=== PATIENT | female | born 1960 | race African-American/Black ===

== ENCOUNTER 2016-07-09 07:16 | Emergency (ER) | payer MEDICARE, MEDICAID ==
[~2016-07-09] VITALS: Ht 165.1 cm; Wt 115.0 kg
[~2016-07-09 07:16] MED LIST: CALC-1059 PO; DIAZ5TAB4 PO; FERR-63 PO; HYDR-3927 PO; HYDR25TA PO; LOSA50TA20 PO; OMEP20TA80 PO
[2016-07-09 07:28] VITALS: BP 154/100
== END 2016-07-09 10:21 | disposition home or self-care (01) ==
LOC: ER 07:16
DX: J20.9 Acute bronchitis, unspecified (principal); Z88.1 Allergy status to other antibiotic agents; J44.9 Chronic obstructive pulmonary disease, unspecified; I10 Essential (primary) hypertension
CPT/HCPCS: 99283

== ENCOUNTER 2016-09-03 09:27 | Emergency (ER) | payer MEDICARE, MEDICAID ==
[~2016-09-03] VITALS: Ht 162.6 cm; Wt 106.0 kg
[2016-09-03 09:32] VITALS: BP 172/95
== END 2016-09-03 11:38 | disposition home or self-care (01) ==
LOC: ER 09:53
DX: M25.531 Pain in right wrist (principal); M19.90 Unspecified osteoarthritis, unspecified site; I10 Essential (primary) hypertension; Z98.1 Arthrodesis status; Z88.1 Allergy status to other antibiotic agents; W22.8XXA Striking against or struck by other objects, initial encounter; Y93.89 Activity, other specified; Y92.013 Bedroom of single-family (private) house as the place of occurrence of the external cause
CPT/HCPCS: 73110; 99284

== ENCOUNTER → 2017-04-29 | Outpatient (CLI) | payer MEDICARE, MEDICAID ==
[~2017-04-29] MED LIST changes: -HYDR-3927 PO; +HYDR-4001 PO; +OMEP20TA2 PO; -OMEP20TA80 PO
== END | disposition home or self-care (01) ==
LOC: MAMMO 10:12
PROVIDERS: ATTEND Internal Medicine
DX: Z12.31 Encounter for screening mammogram for malignant neoplasm of breast (principal)
CPT/HCPCS: 77067

== ENCOUNTER 2017-10-11 08:46 | Emergency (ER) | payer MEDICARE, MEDICAID ==
[~2017-10-11] VITALS: Ht 160 cm; Wt 108.0 kg
[2017-10-11 15:01] VITALS: BP 148/62
== END 2017-10-11 15:02 | disposition home or self-care (01) ==
LOC: ER 08:46
DX: J35.8 Other chronic diseases of tonsils and adenoids (principal); I10 Essential (primary) hypertension
CPT/HCPCS: 87070; 87430; 99283

== ENCOUNTER → 2023-07-17 | Outpatient (CLI) | payer MEDICARE, MEDICAID ==
[~2023-07-17] MED LIST changes: +BO1 TP; +CALC-26 MT; +CLIN-116 MT; +FERR325T6 MT; +IBUP-2029 MT; +IBUP-2030 MT; -LOSA50TA20 PO; +LOSA50TA41 MT; +LOSA50TA41 PO; +MECL-299 MT; +NYST15CR37 TP; +OMEP20CA14 MT; -OMEP20TA2 PO; +OMEP20TA23 PO; +[UNRECOGNIZED DRUG - CODE] OP
== END | disposition home or self-care (01) ==
LOC: MRI 12:18
PROVIDERS: ATTEND Internal Medicine
DX: M13.842 Other specified arthritis, left hand (principal); M79.642 Pain in left hand
CPT/HCPCS: 73218; 73220; 73560; 73590; 73610

== ENCOUNTER → 2023-09-17 | Outpatient (CLI) | payer MEDICARE, MEDICAID | END | disposition home or self-care (01) | LOC: MRI 09:35 | PROVIDERS: ATTEND Internal Medicine | DX: M47.817 Spondylosis without myelopathy or radiculopathy, lumbosacral region (principal); M47.814 Spondylosis without myelopathy or radiculopathy, thoracic region; M48.07 Spinal stenosis, lumbosacral region; M25.78 Osteophyte, vertebrae | CPT/HCPCS: 72148 ==

== ENCOUNTER → 2023-10-24 | Outpatient (CLI) | payer MEDICARE, MEDICAID | END | disposition home or self-care (01) | LOC: US 11:25 | PROVIDERS: ATTEND Internal Medicine | DX: N28.1 Cyst of kidney, acquired (principal); N28.9 Disorder of kidney and ureter, unspecified | CPT/HCPCS: 76770 ==

== ENCOUNTER 2024-04-16 07:58 | Emergency (ER) | payer MEDICARE, MEDICAID ==
[~2024-04-16] VITALS: Ht 157.5 cm; Wt 89.6 kg
[2024-04-16 08:15] VITALS: O2SAT 99
[2024-04-16 09:06] LABS: CARBON DIOXIDE 26 mEq/L (21-32); CHLORIDE 106 mEq/L (98-107); POTASSIUM 3.9 mEq/L (3.5-5.1); SODIUM 142 mEq/L (136-145)
[2024-04-16 09:07] LABS: BASOPHILS % 0.8 % (0.0-2.0); CALCIUM 9.8 mg/dL (8.7-10.4); EOSINOPHILS % 3.5 % (0.0-5.0); HEMOGLOBIN. 13.9 g/dL (12.0-16.0); LYMPHOCYTES % 27.2 % (20.0-50.0); MEAN CORPUSCULAR HEMOGLOBIN 26.9 pg (28.0-32.0); MEAN CORPUSCULAR HGB CONC 32.3 g/dL (31.0-37.0); MEAN CORPUSCULAR VOLUME 83.3 fL (81.0-99.0); MEAN PLATELET VOLUME 9.7 fl (7.4-10.4); MONOCYTES % 6.5 % (2.0-8.0); PLATELET 198 x1000/uL (130-400); RED BLOOD CELL COUNT 5.16 mill/uL (4.2-5.4); RED CELL DISTRIBUTION WIDTH 14.4 % (11.6-14.6)
[2024-04-16 09:12] LABS: CREATININE 0.9 mg/dL (0.6-1.0); GLUCOSE 104 mg/dL (70-105); UREA NITROGEN BLOOD 19 mg/dL (9-23)
[2024-04-16 09:35] LABS: TROPONIN I HIGH SENSITIVITY < 4 ng/L (3.0-34)
[2024-04-16 10:35] VITALS: BP 140/78; PULSE 72; RESP 18; TEMP 36.61404; O2SAT 99
== END 2024-04-16 10:37 | disposition home or self-care (01) ==
LOC: ER 07:58
DX: M79.601 Pain in right arm (principal); J45.909 Unspecified asthma, uncomplicated; I10 Essential (primary) hypertension; E11.9 Type 2 diabetes mellitus without complications; Z88.0 Allergy status to penicillin; Z79.899 Other long term (current) drug therapy; Z90.710 Acquired absence of both cervix and uterus; Z98.890 Other specified postprocedural states
CPT/HCPCS: 36415; 80048; 84484; 85025; 99283

== ENCOUNTER 2024-10-28 11:29 | Emergency (ER) | payer MEDICARE, MEDICAID ==
[~2024-10-28] VITALS: Ht 162.6 cm; Wt 91.0 kg
[~2024-10-28 11:29] MED LIST changes: +NYST15CR31 TP; -NYST15CR37 TP
[2024-10-28 11:42] VITALS: O2SAT 99
[2024-10-28 13:26] LABS: BASOPHILS % 1.5 % (0.0-2.0); EOSINOPHILS % 2.5 % (0.0-5.0); HEMATOCRIT. 42.5 % (36.0-48.0); HEMOGLOBIN. 13.6 g/dL (12.0-16.0); LYMPHOCYTES % 32.7 % (20.0-50.0); MEAN PLATELET VOLUME 9.5 fl (7.4-10.4); MONOCYTES % 8.0 % (2.0-8.0); NEUTROPHILS % 55.3 % (40.0-76.0); PLATELET 174 x1000/uL (130-400); RED BLOOD CELL COUNT 5.15 mill/uL (4.2-5.4); RED CELL DISTRIBUTION WIDTH 14.6 % (11.6-14.6)
[2024-10-28 13:40] LABS: CREATININE 1.0 mg/dL (0.6-1.0); UREA NITROGEN BLOOD 25 mg/dL (9-23)
[2024-10-28 13:42] LABS: ASPARTATE AMINOTRANSFERASE 24 IU/L (<34); BILIRUBIN DIRECT < 0.1 mg/dL (<=3.0); BILIRUBIN TOTAL 0.4 mg/dL (0.1-1.0); PROTEIN TOTAL 7.6 g/dL (6.0-8.3)
[2024-10-28] MEDS ORDERED: NA P133E RC (13:55)
[2024-10-28 14:17] VITALS: BP 118/80; PULSE 59; RESP 16; TEMP 37.1; O2SAT 100
== END 2024-10-28 14:35 | disposition home or self-care (01) ==
LOC: ER 11:51
DX: K56.41 Fecal impaction (principal); M79.662 Pain in left lower leg; E11.9 Type 2 diabetes mellitus without complications; I10 Essential (primary) hypertension; J45.909 Unspecified asthma, uncomplicated; Z88.0 Allergy status to penicillin; Z79.899 Other long term (current) drug therapy; Z90.710 Acquired absence of both cervix and uterus; Z98.890 Other specified postprocedural states
CPT/HCPCS: 36415; 74176; 80048; 80076; 85025; 93971; 99284

== ENCOUNTER 2025-01-25 13:45 | Emergency (ER) | payer MEDICARE, MEDICAID ==
[~2025-01-25] VITALS: Ht 160 cm; Wt 92.1 kg
[~2025-01-25 13:45] MED LIST changes: +IBUP-1455 MT; -IBUP-2029 MT; +NA P133E RC
[2025-01-25 14:09] VITALS: O2SAT 100
[2025-01-25 15:19] LABS: BASOPHILS % 1.6 % (0.0-2.0); EOSINOPHILS % 2.8 % (0.0-5.0); HEMATOCRIT. 40.8 % (36.0-48.0); HEMOGLOBIN. 13.1 g/dL (12.0-16.0); LYMPHOCYTES % 31.9 % (20.0-50.0); MEAN PLATELET VOLUME 9.5 fl (7.4-10.4); MONOCYTES % 5.5 % (2.0-8.0); NEUTROPHILS % 58.2 % (40.0-76.0); PLATELET 191 x1000/uL (130-400); RED BLOOD CELL COUNT 4.98 mill/uL (4.2-5.4); RED CELL DISTRIBUTION WIDTH 14.3 % (11.6-14.6)
[2025-01-25 15:32] LABS: CREATININE 0.8 mg/dL (0.6-1.0); UREA NITROGEN BLOOD 16 mg/dL (9-23)
[2025-01-25 15:33] LABS: TROPONIN I HIGH SENSITIVITY < 4 ng/L (3.0-34)
[2025-01-25 15:34] LABS: ASPARTATE AMINOTRANSFERASE 19 IU/L (<34); BILIRUBIN DIRECT 0.1 mg/dL (<=3.0); BILIRUBIN TOTAL 0.4 mg/dL (0.1-1.0); PROTEIN TOTAL 7.4 g/dL (6.0-8.3)
[2025-01-25 16:05] LABS: CLARITY URINE CLEAR (CLEAR); GLUCOSE URINE NEGATIVE (NEGATIVE); KETONES URINE NEGATIVE (NEGATIVE); LEUKOCYTE ESTERASE URINE 2+ (NEGATIVE); NITRITE URINE NEGATIVE (NEGATIVE); OCCULT BLOOD URINE NEGATIVE (NEGATIVE); PH URINE 7.5 (4.5-8.0); PROTEIN URINE NEGATIVE (NEGATIVE); SPECIFIC GRAVITY URINE 1.018 (1.005-1.030); UROBILINOGEN URINE 1.0 E.U./dL (0.2-1.0)
[2025-01-25 16:26] LABS: COLOR URINE STRAW (YELLOW)
[2025-01-25 16:27] LABS: BACTERIA URINE TRACE; RBC URINE NONE SEEN /hpf (0-2); SQUAMOUS EPITHELIAL CELL URINE RARE /lpf (RARE/1+)
[2025-01-25] MEDS ORDERED: NITR-87 MT (16:38)
[2025-01-25 17:55] VITALS: BP 139/68; PULSE 64; RESP 18; TEMP 36.7; O2SAT 100
== END 2025-01-25 17:57 | disposition home or self-care (01) ==
LOC: ER 13:45
DX: R82.71 Bacteriuria (principal); R42 Dizziness and giddiness; K21.9 Gastro-esophageal reflux disease without esophagitis; I10 Essential (primary) hypertension; E11.9 Type 2 diabetes mellitus without complications; J45.909 Unspecified asthma, uncomplicated; Z88.0 Allergy status to penicillin; Z90.710 Acquired absence of both cervix and uterus; Z79.899 Other long term (current) drug therapy
CPT/HCPCS: 36415; 80048; 80076; 81003; 84484; 85025; 93005; 99284

== ENCOUNTER → 2025-03-08 | Outpatient (CLI) | payer MEDICARE, MEDICAID ==
[~2025-03-08] MED LIST changes: +NITR-87 MT
== END | disposition home or self-care (01) ==
LOC: MRI 11:13
DX: M75.121 Complete rotator cuff tear or rupture of right shoulder, not specified as traumatic (principal); M19.011 Primary osteoarthritis, right shoulder; M25.711 Osteophyte, right shoulder; M67.88 Other specified disorders of synovium and tendon, other site; M25.511 Pain in right shoulder
CPT/HCPCS: 73221